=== PATIENT | female | born 1945 | race Caucasian/White ===

== ENCOUNTER 2022-09-16 08:03 | Outpatient (CLI) | payer MEDICARE, BC, SELFPAY ==
[2022-09-16 13:05] LABS: Albumin* 4.2 g/dL (3.3-5.0)
[2022-09-16 13:06] LABS: Chloride* 100 mmol/L (96-114); Potassium* 4.5 mmol/L (3.6-5.1); Sodium* 139 mmol/L (135-149)
[2022-09-16 13:08] LABS: Carbon Dioxide* 30 mmol/L (20-32); Cholesterol* 153 mg/dL (90-199); Creatinine* 0.7 mg/dL (0.5-1.5); Estimated Glomerular Filt Rate 88 ml/min
[2022-09-16 13:09] LABS: Alanine Aminotransferase* 24 U/L (4-35); Alkaline Phosphatase* 97 U/L (40-150); Aspartate Amino Transferase* 29 U/L (12-35); Bilirubin Total* 0.5 mg/dL (0.1-1.5); Blood Urea Nitrogen* 15 mg/dL (7-30); Calcium* 9.3 mg/dL (8.4-10.6); Glucose* 91 mg/dL (60-115); HDL Cholesterol* 54 mg/dL (>=50); LDL Cholesterol Calculated 73 mg/dL (<100); Total Protein* 7.3 g/dL (6.0-8.3); Triglycerides* 131 mg/dL (40-149)
== END 2022-09-16 08:04 | disposition home or self-care (01) ==
PROVIDERS: Visit Provider Family Medicine
DX: E78.5 Hyperlipidemia, unspecified (principal); K21.9 Gastro-esophageal reflux disease without esophagitis
CPT/HCPCS: 80053; 80061

== ENCOUNTER 2022-09-21 13:20 | Outpatient (CLI) | payer MEDICARE, BC, SELFPAY ==
--- NOTE | 2022-09-21 13:30 | CRLHL7_ITS ---
For Patients: As a result of the Century Cures Act, medical imaging exams and procedure reports are released immediately into your electronic medical record. You may view this report before your referring provider. If you have questions, please contact your health care provider. DXA BONE MINERAL DENSITY STUDY Reason for exam: Screening. Current height (in): 63. Weight (lb): 180. Menopause age: 54. Ethnicity: White. 1. Have you had a previous hip or vertebral fracture? No. 2. Have you had any fractures during your adult life which did not result from significant trauma (e.g., auto accident)? No. 3. Did either of your parents have a hip fracture? No. 4. Do you smoke? No. 5. Have you ever taken Glucocorticoids? No. 6. Do you have rheumatoid arthritis? No. 7. Do you have secondary osteoporosis? No. 8. Do you drink 3 or more alcoholic drinks per day? No. 9. Are you being treated for osteoporosis? No. 10. Have you ever taken any of the following medications: Actonel, Evista, Fosamax, Miacalcin, Reclast, Boniva, Forteo, HRT (i.e. estrogen/hormone therapy), Protelos, Prolia, Vitamin D, Calcium, other ??? please specify. ANSWER: Yes, vitamin D, calcium, HRT. 11. Do you have any of the following medical conditions: Anorexia or bulimia, asthma or emphysema, end stage renal disease, hyperparathyroidism, any seizure disorders, cancer, inflammatory bowel diseases, hysterectomy, other ??? please specify. ANSWER: Yes, inflammatory bowel diseases. 12. What was your maximum height (inches)? 65. 13. Do you perform weight bearing exercise regularly? No. 14. Do you regularly consume dairy products? Yes. 15. Do you drink caffeinated beverages? Yes. 16. At what age did your period start? 11. 17. Are you premenopausal? No. 18. How many full term pregnancies have you had? 3. 19. Have you ever missed your period for more than 6 months in a row (not including or menopause)? No. TECHNIQUE: Bone mineral density study was performed using the [facility]. FINDINGS: The results of the study expressed as bone mineral density (BMD) are as follows: Lumbar spine L1 and L4: BMD: 1.286 g/cm2. T-score: 2.3. Z-score: 4.9. Neck Left: BMD: 0.776 g/cm2. T-score: -0.7. Z-score: 1.6. Right: BMD: 0.803 g/cm2. T-score: -0.4. Z-score: 1.8. Total Left: BMD: 0.892 g/cm2. T-score: -0.4. Z-score: 1.6. Right: BMD: 0.943 g/cm2. T-score: 0.0. Z-score: 2.0 IMPRESSION: Normal bone density. *Comparison exams done prior to 04/2020 were performed on different unit, [facility]. COMPARISON: Compared with scan of 02/04/2019, the bone mineral density has decreased by 12.4 percent at the spine and decreased by 0.8 percent at the hip. Josh Berman M.D. Diagnostic/Nuclear Medicine Radiologist [email or web address] RONA/Dictated by: Josh Berman MD @ 09/21/2022 8:15:00 PM (Electronically Signed)
== END 2022-09-21 13:21 | disposition home or self-care (01) ==
LOC: RAD 13:21
PROVIDERS: Visit Provider Family Medicine
DX: Z13.820 Encounter for screening for osteoporosis (principal); Z78.0 Asymptomatic menopausal state
CPT/HCPCS: 77080

== ENCOUNTER 2023-04-28 09:58 | Outpatient (CLI) | payer MEDICARE, BC, SELFPAY ==
--- NOTE | 2023-04-28 10:15 | CRLHL7_ITS ---
For Patients: As a result of the Century Cures Act, medical imaging exams and procedure reports are released immediately into your electronic medical record. You may view this report before your referring provider. If you have questions, please contact your health care provider. BILATERAL SCREENING MAMMOGRAM WITH COMPUTER-AIDED DETECTION AND TOMOSYNTHESIS TECHNIQUE: CC and MLO views were obtained. These mammographic images have been obtained using full-field digital technique. These mammographic images were interpreted with the benefit of computer-aided detection. Breast Tomosynthesis was used in this interpretation. COMPARISON FILM: 07/29/22, 07/26/21, 06/12/20. FINDINGS: There are scattered areas of fibroglandular density IMPRESSION: There is no radiographic evidence for malignancy. ASSESSMENT: BI-RADS Category 2: Benign RECOMMENDATION: Routine screening mammogram in 1 year. A lay language report of this examination will be provided to the patient. Joe Forrest M.D. Diagnostic Radiologist [email or web address] RONA/Dictated by: Joe Forrest MD @ 04/28/2023 11:19:00 AM (Electronically Signed)
== END 2023-04-28 09:59 | disposition home or self-care (01) ==
LOC: MAMMO 10:02
PROVIDERS: Visit Provider Family Medicine
DX: Z12.31 Encounter for screening mammogram for malignant neoplasm of breast (principal)
CPT/HCPCS: 77063; 77067

== ENCOUNTER 2023-09-18 08:12 | Outpatient (CLI) | payer MEDICARE, BC, SELFPAY | END 2023-09-18 08:13 | disposition home or self-care (01) | LOC: NFLDREF 09-20 09:50 | PROVIDERS: Visit Provider Family Medicine | DX: Z00.00 Encounter for general adult medical examination without abnormal findings (principal); E78.5 Hyperlipidemia, unspecified | CPT/HCPCS: 80053; 80061 ==

== ENCOUNTER 2024-02-06 06:55 | Outpatient (CLI) | payer MEDICARE, BC, SELFPAY | END 2024-02-06 06:56 | disposition home or self-care (01) | LOC: FRMREF 08:10 | PROVIDERS: PCP Family Medicine; Visit Provider Family Medicine | DX: I10 Essential (primary) hypertension (principal) | CPT/HCPCS: 82043; 82570 ==

== ENCOUNTER 2024-04-30 08:55 | Outpatient (CLI) | payer MEDICARE, BC, SELFPAY ==
--- NOTE | 2024-04-30 09:15 | CRLHL7_ITS ---
For Patients: As a result of the Century Cures Act, medical imaging exams and procedure reports are released immediately into your electronic medical record. You may view this report before your referring provider. If you have questions, please contact your health care provider. BILATERAL SCREENING MAMMOGRAM WITH COMPUTER-AIDED DETECTION AND TOMOSYNTHESIS TECHNIQUE: CC and MLO views were obtained. These mammographic images have been obtained using full-field digital technique. These mammographic images were interpreted with the benefit of computer-aided detection. Breast Tomosynthesis was used in this interpretation. COMPARISON FILM: 04/28/23, 04/27/22, 04/26/21. FINDINGS: There are scattered areas of fibroglandular density. IMPRESSION: There is no radiographic evidence for malignancy. ASSESSMENT: BI-RADS Category 2: Benign RECOMMENDATION: Routine screening mammogram in 1 year. A lay language report of this examination will be provided to the patient. Joe Forrest M.D. Diagnostic Radiologist [email or web address] SP/Dictated by: Joe Forrest MD @ 04/30/2024 10:40:00 AM (Electronically Signed)
== END 2024-04-30 08:56 | disposition home or self-care (01) ==
LOC: MAMMO 08:57
PROVIDERS: PCP Family Medicine; Visit Provider Family Medicine
DX: Z12.31 Encounter for screening mammogram for malignant neoplasm of breast (principal)
CPT/HCPCS: 77063; 77067